=== PATIENT | female | born 1985 | race Caucasian/White ===

== ENCOUNTER 2023-09-26 02:06 | Emergency (ER) | payer BC, OTHER ==
[2023-09-26] MEDS ORDERED: ALBUTEROL SO4 2.5/IPRATROPIUM 0.5 INH SOL 3 ML VIAL.NEB. NEB ONE (02:11)
[2023-09-26 02:13] VITALS: BP 133/81; PULSE 123; RESP 20; TEMP 98.3; BMI 29.6
[2023-09-26] MEDS ORDERED: DEXAMETHASONE SOD PHOSPHATE 10 MG/1 ML VIAL ONE (02:20)
[2023-09-26] MEDS: DEXAMETHASONE SOD PHOSPHATE 10 MG/1 ML VIAL IM ONE (02:25)
[2023-09-26] MEDS ORDERED: ALBUTEROL SO4 HFA INHALER IH ONE (03:07)
[2023-09-26] MEDS: ALBUTEROL SO4 HFA INHALER IH PRN (03:27)
== END 2023-09-26 04:35 | disposition home or self-care (01) ==
LOC: JER 02:06
PROC: 3E023GC Introduction of Other Therapeutic Substance into Muscle, Percutaneous Approach (ICD-10-PCS; principal; 2023-09-26)
DX: J45.901 Unspecified asthma with (acute) exacerbation (principal); R06.02 Shortness of breath; R07.89 Other chest pain; J34.89 Other specified disorders of nose and nasal sinuses
CPT/HCPCS: 71046-TC-FY; 99284-25; J1100